=== PATIENT | female | born 1990 | race Caucasian/White ===

== ENCOUNTER 2016-12-22 10:20 | Emergency (ER) | payer MEDICAID ==
[~2016-12-22] VITALS: Ht 162.6 cm; Wt 84.8 kg
--- OUTSIDE RECORDS SUMMARY | 2016-12-22 10:31 | External Medical Summary Rpt ---
Author Author , YISEL MORILLO Address Unknown Phone [email or web address] Team Providers Care Motion Picture Set Grip Name Role Phone [facility] Unavailable Unavailable [facility], [facility] Unavailable Unavailable [facility], [facility] Unavailable Unavailable [facility], [facility] STEWART, STEWART Unavailable Unavailable [facility] Unavailable Unavailable [facility], [facility] Unavailable Unavailable [facility]INGS, [facility] MANA[facility] CONFIGURATION [facility]available Unavailable ASSOCIATES,, [facility], [facility] Unavailable Unavailable [facility], [facility] Un[facility] FERNANDO PIERCE, Unavailable Unavailable FERNANDO GAY, ANTONELLA Unavailable Unavailable ANG SCIELLIS GAY, SCIES Unavailable Unavailable [facility] Unavailable Unavailable PROFESSIO, [facility] JADEN, JADEN Unavailable Unavailable Purpose Continuity of Care Document - 03-10-2016 through 2016 Problems Code Diagnosis DOS Provider Status [id number] UNSPECIFIED 11-01-2016 [facility] OVARIAN MANAGER CONFIGURATION CYST LEFT ASSOCIATES, SIDE N926 IRREGULAR 11-01-2016 [facility] MENSTRUATIO MANAGER CONFIGURATION N ASSOCIATES, UNSPECIFIED Z3202 ENCOUNTER 08-30-2016 [facility] FOR MANAGER CONFIGURATION ASSOCIATES, TEST RESULT NEGATIVE D729 DISORDER OF 08-09-2016 [facility] UNSPECIFIED R102 PELVIC AND 08-09-2016 [facility] R5383 OTHER 08-09-2016 [facility] [id number] ENCOUNTER 07-26-2016 [facility] CLOCK ASSEMBLER EXAM [facility] GENERAL RTN HOLDINGS W/O ABNORMAL FIND D271 BENIGN 07-22-2016 [facility] NEOPLASM OF HEALTH LEFT OVARY [facility] E278 OTHER 07-22-2016 [facility] SPECIFIED RADIOLOGIC DISORDERS PROFESSIO OF ADRENAL GLAND N1330 UNSPECIFIED 07-22-2016 [facility] HYDRONEPHRO PROFESSIO SIS N209 URINARY 07-22-2016 [facility] UNSPECIFIED N390 URINARY 07-22-2016 [facility] INFECTION PHYS [facility] SITE NOT SPECIFIED R109 UNSPECIFIED 07-22-2016 [facility] ABDOMINAL RADIOLOGIC PAIN PROFESSIO R112 NAUSEA WITH 07-22-2016 [facility] VOMITING [facility] UNSPECIFIED PHYS PSC R300 DYSURIA 07-22-2016 [facility] Z113 ENCOUNTER 06-18-2016 [facility] INFECTIONS SEXL MODE TRANSMISSN H5213 MYOPIA 03-10-2016 [facility] BILATERAL [id number] REGULAR 03-10-2016 [facility] ASTIGMATISM BILATERAL Medications Na ND Rx Da Fi Fi Am Da Di Ph RX Ph St me C No te ll ll ou ys ag ar # ys at rm s nt no ma ic us Or Da si cy ia de te s n re d TR 00 06 07 28 21 00 WA Ac I- 55 -0 -0 .0 00 L- ti SP 59 2- 7- 00 07 MA ve RI 01 20 20 31 RT NT 85 17 17 85 EC 8 27 PH AR TA MA BL CY ET #2 62 8 PA 54 05 06 30 30 00 WA Ac RO 45 -1 -1 .0 00 L- ti XE 80 2- 6- 00 07 MA ve TI 99 20 20 32 RT NE 01 17 17 38 0 92 PH HC AR L MA 10 CY MG #2 62 TA 8 BL ET MO 31 05 06 30 30 00 WA Ac NT 72 -1 -1 .0 00 L- ti EL 20 2- 6- 00 07 MA ve UK 72 20 20 32 RT 69 17 17 38 T 0 91 PH SO AR D MA 10 CY MG #2 62 TA 8 BL ET CE 00 05 06 30 30 00 WA Ac TI 37 -1 -1 .0 00 L- ti RI 83 2- 6- 00 08 MA ve ZI 63 20 20 82 RT NE 70 17 17 85 5 44 PH HC AR L MA 10 CY MG #2 62 TA 8 BL ET TR 00 04 05 28 21 00 WA Ac I- 55 -1 -1 .0 00 L- ti SP 59 6- 9- 00 07 MA ve RI 01 20 20 31 RT NT 85 17 17 85 EC 8 27 PH AR TA MA BL CY ET #2 62 8 MO 31 04 05 30 30 00 WA Ac NT 72 -1 -1 .0 00 L- ti EL 20 0- 2- 00 07 MA ve UK 72 20 20 32 RT 69 17 17 38 T 0 91 PH SO AR D MA 10 CY MG #2 62 TA 8 BL ET PA 54 04 05 30 30 00 WA Ac RO 45 -1 -1 .0 00 L- ti XE 80 0- 2- 00 07 MA ve TI 99 20 20 32 RT NE 01 17 17 38 0 92 PH HC AR L MA 10 CY MG #2 62 TA 8 BL ET CE 00 04 05 30 30 00 MS Ac TI 37 -1 -1 .0 00 L- ti RI 83 0- 2- 00 08 MA ve ZI 63 20 20 82 RT NE 70 17 17 85 5 44 PH HC AR L MA 10 CY MG #2 62 TA 8 BL ET TR 00 03 04 28 21 00 MS Ac I- 55 -1 -2 .0 00 L- ti SP 59 6- 1- 00 07 MA ve RI 01 20 20 31 RT NT 85 17 17 85 EC 8 27 PH AR TA MA BL CY ET #2 62 8 EQ 49 03 04 30 30 00 MS Ac 03 -1 -1 .0 00 L- ti AL 50 4- 4- 00 08 MA ve LE 45 20 20 82 RT RG 89 17 17 85 Y 5 44 PH RE AR LI MA EF CY 10 #2 62 MG 8 TA BL ET PA 54 03 04 30 30 00 MS Ac RO 45 -1 -1 .0 00 L- ti XE 80 4- 4- 00 07 MA ve TI 99 20 20 32 RT NE 01 17 17 38 0 92 PH HC AR L MA 10 CY MG #2 62 TA 8 BL ET MO 54 03 04 30 30 00 MS Ac NT 45 -1 -1 .0 00 L- ti EL 80 4- 4- 00 07 MA ve UK 89 20 20 32 RT 01 17 17 38 T 0 91 PH SO AR D MA 10 CY MG #2 62 TA 8 BL ET TR 00 02 03 28 21 00 MS Ac I- 55 -2 -3 .0 00 L- ti SP 59 5- 1- 00 07 MA ve RI 01 20 20 31 RT NT 85 17 17 85 EC 8 27 PH AR TA MA BL CY ET #2 62 8 STONE 55 02 03 9. 9 00 MS Ac MA 11 -2 -3 00 00 L- ti TR 10 3- 1- 0 07 MA ve IP 29 20 20 32 RT TA 20 17 17 38 N 9 90 PH STONE AR CC MA CY 50 #2 MG 62 8 TA BL ET PA 54 02 03 30 30 00 MS Ac RO 45 -1 -1 .0 00 L- ti XE 80 0- 7- 00 07 MA ve TI 99 20 20 30 RT NE 01 17 17 23 0 89 PH HC AR L MA 10 CY MG #2 62 TA 8 BL ET MO 54 02 03 30 30 00 MS Ac NT 45 -1 -1 .0 00 L- ti EL 80 0- 7- 00 07 MA ve UK 89 20 20 30 RT 01 17 17 23 T 0 90 PH SO AR D MA 10 CY MG #2 62 TA 8 BL ET CE 00 02 03 30 30 00 MS Ac TI 37 -1 -1 .0 00 L- ti RI 83 0- 7- 00 08 MA ve ZI 63 20 20 82 RT NE 70 17 17 85 5 44 PH HC AR L MA 10 CY MG #2 62 TA 8 BL ET STONE 55 02 03 9. 9 00 MS Ac MA 11 -1 -1 00 00 L- ti TR 10 2- 7- 0 07 MA ve IP 29 20 20 30 RT TA 10 17 17 93 N 9 54 PH STONE AR CC MA CY 25 #2 MG 62 8 TA BL ET TR 00 02 03 28 21 00 MS Ac I- 55 -0 -1 .0 00 L- ti SP 59 6- 0- 00 07 MA ve RI 01 20 20 31 RT NT 85 17 17 85 EC 8 27 PH AR TA MA BL CY ET #2 62 8 TR 65 02 03 20 5 00 KR Ac AM 16 -0 -1 .0 00 OG ti AD 20 6- 0- 00 04 ER ve OL 62 20 20 61 75 17 17 67 PH HC 0 62 AR L MA 50 CY MG L- 35 TA 2 BL ET LE 69 02 03 5. 5 00 KR Ac VO 09 -0 -1 00 00 OG ti FL 70 6- 0- 0 06 ER ve OX 28 20 20 89 AC 70 17 17 47 PH IN 7 80 AR MA 75 CY 0 MG L- 35 TA 2 BL ET ON 45 02 03 20 7 00 KR Ac DA 96 -0 -1 .0 00 OG ti NS 30 6- 0- 00 06 ER ve ET 53 20 20 89 RO 83 17 17 47 PH N 0 81 AR HC MA L CY 4 MG L- 35 TA 2 BL ET EQ 49 01 02 30 30 00 MS Ac 03 -1 -1 .0 00 L- ti AL 50 4- 7- 00 08 MA ve LE 45 20 20 82 RT RG 89 17 17 85 Y 5 44 PH RE AR LI MA EF CY 10 #2 62 MG 8 TA BL ET TR 00 01 02 28 21 00 WA Ac I- 55 -1 -1 .0 00 L- ti SP 59 4- 7- 00 07 MA ve RI 01 20 20 31 RT NT 85 17 17 85 EC 8 27 PH AR TA MA BL CY ET #2 62 8 STONE 55 01 02 9. 30 00 WA Ac MA 11 -1 -1 00 00 L- ti TR 10 4- 7- 0 07 MA ve IP 29 20 20 30 RT TA 10 17 17 93 N 9 54 PH STONE AR CC MA CY 25 #2 MG 62 8 TA BL ET MO 54 01 02 30 30 00 MS Ac NT 45 -1 -1 .0 00 L- ti EL 80 4- 7- 00 07 MA ve UK 89 20 20 30 RT 01 17 17 23 T 0 90 PH SO AR D MA 10 CY MG #2 62 TA 8 BL ET PA 54 01 02 30 30 00 MS Ac RO 45 -1 -1 .0 00 L- ti XE 80 4- 7- 00 07 MA ve TI 99 20 20 30 RT NE 01 17 17 23 0 89 PH HC AR L MA 10 CY MG #2 62 TA 8 BL ET GA 00 12 01 0. [address] 00 -1 -2 50 00 L- ti 64 6- 0- 0 07 MA ve IL 12 20 20 31 RT 9 10 16 17 48 2 43 PH SY AR RI MA NG CY E #2 62 8 PA 54 12 01 30 30 00 MS Ac RO 45 -1 -2 .0 00 L- ti XE 80 6- 0- 00 07 MA ve TI 99 20 20 30 RT NE 01 16 17 23 0 89 PH HC AR L MA 10 CY MG #2 62 TA 8 BL ET CE 00 12 01 30 30 00 MS Ac TI 37 -1 -2 .0 00 L- ti RI 83 6- 0- 00 08 MA ve ZI 63 20 20 82 RT NE 70 16 17 85 5 44 PH HC AR L MA 10 CY MG #2 62 TA 8 BL ET STONE 55 12 01 9. 30 00 MS Ac MA 11 -1 -2 00 00 L- ti TR 10 6- 0- 0 07 MA ve IP 29 20 20 30 RT TA 10 16 17 93 N 9 54 PH STONE AR CC MA CY 25 #2 MG 62 8 TA BL ET MO 54 12 01 30 30 00 MS Ac NT 45 -1 -2 .0 00 L- ti EL 80 6- 0- 00 07 MA ve UK 89 20 20 30 RT 01 16 17 23 T 0 90 PH SO AR D MA 10 CY MG #2 62 TA 8 BL ET FL 49 12 01 0. 1 00 WA Ac UZ 28 -0 -0 50 00 L- ti ON 10 1- 9- 0 07 MA ve E 41 20 20 31 RT QU 65 16 17 27 AD 0 98 PH AR 20 MA 16 CY -2 01 #2 7 62 SY 8 RI NG E Results Labs Lab Lab Date Result Refere Interp Status Commen Order Detail nces retati t Range on B-HCG SerPl-aCnc (08-30-2016 11:56) HGC < 5.00 complet Intact+ 017 mIU/mL ed B 11:56 SerPl-a Cnc Lactate SerPl-sCnc (07-22-2016 22:23) D-Lacta 1.6 0.5-2.0 complet te 017 mmol/L ed SerPl-s 22:23 Cnc Procalcitonin SerPl-mCnc (07-22-2016 22:23) Procalc < 0.05 complet itonin 017 ng/mL ed SerPl-m 22:23 Cnc Bacteria Bld Cult (07-22-2016 22:22) Bacteri No complet a XXX 017 growth ed Aerobe 22:22 at 5 Cult days Bacterial Susc Pnl Islt KAYLA (07-22-2016 19:48) Meropen 07-22-2 <= 1 complet em Susc 017 ug/ml ed Islt 19:48 Levoflo 2 <= 2 complet xacin 017 ug/ml ed Susc 19:48 Islt Gentami 2 <= 4 complet ofelia 017 ug/ml ed Susc 19:48 Islt Ertapen 2 <= 1 complet em Susc 017 ug/ml ed Islt 19:48 Cephalo <= 8 complet thin 017 ug/ml ed Susc 19:48 Islt Cefurox 2 <= 4 complet ele 017 ug/ml ed Lauren 19:48 r Susc Islt Ceftria 052 <= 8 complet xone 017 ug/ml ed Susc 19:48 Islt Cefotax 02-05-2 <= 2 complet ele 017 ug/ml ed Susc 19:48 Islt Cefepim 05-2 <= 8 complet e Susc 017 ug/ml ed Islt 19:48 Aztreon 05-2 <= 8 complet am Susc 017 ug/ml ed Islt 19:48 Ampicil 05-2 <= 8 / complet mike+Sul 017 4 ug/ml ed diego 19:48 Susc Islt Ampicil 05-2 <= 8 complet mike 017 ug/ml ed Susc 19:48 Islt TMP SMX 07-22-2 <= 2 / complet Susc 017 38 ed Islt 19:48 ug/ml Tobramy 05-2 <= 4 complet ofelia 017 ug/ml ed Susc 19:48 Islt Tetracy 07-22-2 <= 4 complet hanks 017 ug/ml ed Susc 19:48 Islt Pip+Ru 07-22-2 <= 16 complet o Susc 017 ug/ml ed Islt 19:48 Nitrofu 07-22-2 <= 32 complet rantoin 017 ug/ml ed Susc 19:48 Islt Bacteria Ur Cult (07-22-2016 19:48) Bacteri [id number] complet a XXX 017 07 ed Aerobe 19:48 Escheri Cult sharri coli SCT UA Microscopic Pnl # Ur Auto (07-22-2016 19:48) Ref lab Manual complet test 017 Light ed method 19:48 Microsc opy Hyaline None 0-6 complet Casts 017 Seen ed Ur Ql 19:48 /LPF Auto Squamou None None complet s 017 Seen Seen, ed #/area 19:48 /HPF 0-2 UrnS HPF Bacteri [id number] None complet a Ur Ql 017 00 Not Seen, ed Auto 19:48 detecte Trace d SCT /HPF WBC Ur Too None complet Ql Auto 017 Numerou Seen ed 19:48 s to Count /HPF RBC # 3-6 None complet Ur 017 /HPF Seen, ed 19:48 0-2 UA Dipstick Pnl Ur (07-22-2016 19:48) Urobili 1.0 0.2 - complet nogen 017 E.U./dL 1.0 ed Ur Ql 19:48 E.U./dL Strip Nitrite [id number] Negativ complet Ur Ql 017 4 e ed Strip 19:48 Positiv e SCT Leukocy [id number] Negativ complet te 017 01 e ed esteras 19:48 Large e Ur Ql SCT Strip.a uto Prot Ur 30 Negativ complet Ql 017 mg/dL e ed Strip 19:48 (1+) Hgb Ur [id number] Negativ complet Ql 017 01 e ed Strip.a 19:48 Large uto SCT Bilirub [id number] Negativ complet Ur Ql 017 09 e ed Strip 19:48 Negativ e SCT Ketones [id number] Negativ complet Ur Ql 017 09 e ed Strip 19:48 Negativ e SCT Glucose [id number] Negativ complet Ur 017 09 e ed Strip-m 19:48 Negativ Cnc e SCT Sp Gr <= 1.001-1 complet Ur 017 1.005 .030 ed Strip 19:48 pH Ur 6.0 5.0-8.0 complet Strip.a 017 ed uto 19:48 Clarity [id number] Clear complet Ur 017 5 ed 19:48 Cloudy SCT Color [id number] Yellow, complet Ur 017 08 Straw ed 19:48 Jessup color SCT LPL SerPl-cCnc (07-22-2016 19:34) Lipase 28 U/L 6-51 complet SerPl-c 017 ed Cnc 19:34 Comp Metab 1997 Pnl SerPl (07-22-2016 19:34) Anion 6.0 3.0-11. complet Gap3 017 mmol/L 0 ed SerPl-s 19:34 Cnc BUN/Cre 11.3 7.0-25. complet at 017 0 ed SerPl 19:34 Albumin 1.4 1.5-2.5 complet /Glob 017 g/dL ed SerPl 19:34 Globuli 3.4 complet n Ur 017 gm/dL ed Elph-mC 19:34 nc GFR/BSA 86 >60 complet .pred 017 mL/min/ ed SerPl 19:34 1.73 MDRD-Ar VRat Bilirub 0.3 0.3-1.2 complet 017 mg/dL ed SerPl-m 19:34 Cnc ALP 63 U/L 25-100 complet SerPl-c 017 ed Cnc 19:34 AST 23 U/L 0-33 complet SerPl-c 017 ed Cnc 19:34 ALT 16 U/L 7-40 complet SerPl w 017 ed 19:34 P-5'-P- cCnc Albumin 4.70 3.20-4. complet 017 g/dL 80 ed SerPl-m 19:34 Cnc Prot 8.1 5.7-8.2 complet SerPl-m 017 g/dL ed Cnc 19:34 Calcium 9.9 8.7-10. complet 017 mg/dL 4 ed XXX-sCn 19:34 c CO2 28.0 20.0-31 complet SerPl-s 017 mmol/L .0 ed Cnc 19:34 Chlorid 103 99-109 complet e 017 mmol/L ed SerPl-s 19:34 Cnc Potassi 3.7 3.5-5.5 complet um 017 mmol/L ed Bld-sCn 19:34 c Sodium 137 132-146 complet Bld-sCn 017 mmol/L ed c 19:34 Creat 07-22-2 0.80 0.60-1. complet Bld-mCn 017 mg/dL 30 ed c 19:34 BUN 05-2 9 mg/dL 9-23 complet Bld-mCn 017 ed c 19:34 Glucose 05-2 100 70-100 complet 017 mg/dL ed Bld-mCn 19:34 c CBC W Diff pnl,unspecified Bld (07-22-2016 19:34) Imm 05-2 0.04 0.00-0. complet Granulo 017 10*3/mm 03 ed cytes # 19:34 3 Bld Basophi 02-05-2 0.03 0.00-0. complet ls # 017 10*3/mm 20 ed Bld 19:34 3 Auto Eosinop 02-05-2 0.22 0.10-0. complet hil # 017 10*3/mm 30 ed Bld 19:34 3 Auto Monocyt 02-05-2 1.09 0.00-1. complet es # 017 10*3/mm 00 ed Bld 19:34 3 Auto Lymphoc 02-05-2 1.55 0.60-4. complet ytes # 017 10*3/mm 80 ed Bld 19:34 3 Auto Neutrop 02-05-2 13.44 1.50-8. complet hils # 017 10*3/mm 30 ed Bld 19:34 3 Auto Imm 02-05-2 0.2 % 0.0-0.6 complet Granulo 017 ed cytes 19:34 NFr Bld Basophi 02-05-2 0.2 % 0.0-1.0 complet ls NFr 017 ed Bld 19:34 Auto Eosinop 02-05-2 1.3 % 0.0-3.0 complet hil NFr 017 ed Bld 19:34 Auto Monocyt 02-05-2 6.7 % 0.0-12. complet es NFr 017 0 ed Bld 19:34 Auto Lymphoc 02-05-2 9.5 % 24.0-44 complet ytes 017 .0 ed NFr Bld 19:34 Auto Neutrop 02-05-2 82.1 % 41.0-71 complet hils 017 .0 ed NFr Bld 19:34 Auto Platele 02-05-2 315 150-450 complet t # Bld 017 10*3/mm ed Auto 19:34 3 PMV Bld 02-05-2 10.7 fL 6.0-12. complet Auto 017 0 ed 19:34 RDW RBC 02-05-2 42.3 fl 37.0-54 complet Auto 017 .0 ed 19:34 RDW RBC 02-05-2 13.0 % 11.3-14 complet 017 .5 ed Auto-Rt 19:34 o MCHC 02-05-2 32.4 32.0-36 complet RBC 017 g/dL .0 ed Auto-mC 19:34 nc MCH RBC 02-05-2 28.7 pg 27.0-31 complet Qn 017 .0 ed Auto 19:34 MCV RBC 02-05-2 88.6 fL 80.0-99 complet Auto 017 .0 ed 19:34 Hct VFr 02-05-2 43.5 % 34.5-44 complet Bld 017 .0 ed Auto 19:34 Hgb 05-2 14.1 11.5-15 complet Bld-mCn 017 g/dL .5 ed c 19:34 RBC # 02-05-2 4.91 3.89-5. complet Bld 017 10*6/mm 14 ed Auto 19:34 3 WBC 05- 16.37 3.50-10 complet nRBC 017 10*3/mm .80 ed cor # 19:34 3 Bld Procedures [place] [address] [facility]LY [facility] TRANSVA 7 MANAGER CONFIGURATION NAL ASSOCIATE S, URINE 27631 [facility] 7 MANAGER CONFIGURATION TEST ASSOCIATE VISUAL S, COLOR CMPRSN METHS BLOOD 23347 JAIN JAIN COUNT 7 [facility] COMPLETE [facility] AUTO&AUTO DIFRNTL WBC GONADOTRO 41548 JAIN JAIN PIN 7 [facility] CHORIONIC [facility] [address] JAIN JAIN THYROID [address] [place] [address] STIMULATI [facility] NG HORMONE TSH COLLECTIO 28064 JAIN JAIN N VENOUS [address] [place] [address] BLOOD [facility] VENIPUNCT URE BASIC 12786 JAIN JAIN METABOLIC 7 HEALTH HEALTH PANEL [facility] [place] [address] [facility] 7 MANAGER CONFIGURATION NAL ASSOCIATE S, BLOOD 74248 LAB LY LAB LY COUNT 7 [facility] AUTO&AUTO DIFRNTL WBC BLOOD 46455 JAIN JAIN COUNT [address] [place] [address] HEALTH COMPLETE [facility] AUTO&AUTO DIFRNTL WBC CULTURE 67085 JAIN JAIN BACTERIAL [address] [place] [address] BLOOD [facility] AEROBIC W/ID ISOLATES SUSCEPTIB 76019 JAIN JAIN LTY STDY [address] [place] [address] ANTIMICRB [facility] IAL MICRO/AGA R DILUTJ URNLS DIP [address]86 JAIN JAIN [address] [place] [address] HEALTH STICK/TAB [facility] [place] [address] JAIN JAIN INFUSION [address] [place] [address] THERAPY/P [facility] ROPHYLAXI S /DX 1ST TO 1 HR THERAPEUT 05038 JAIN JAIN IC 7 [facility] HEALTH INJECTION [facility] IV PUSH EACH NEW DRUG INJECTION J1170 JAIN JAIN [address] [place] [address] HYDROMORP [facility] KERWIN UP [place] [address] [place] [address] JAIN JAIN LIPASE 7 [facility] HEALTH [facility] PROCALCIT 19412 JAIN JAIN ONIN [address] [place] [address] (PCT) [facility] CUL BACT 58202 JAIN JAIN AEROBIC [address] [place] [address] HEALTH ADDL [facility] METHS DEFINITIV E EA ISOL CULTURE 50050 JAIN JAIN BACTERIAL [address] [place] [address] QUANTTATI VE COLONY COUNT URINE INJECTION J2405 JAIN JAIN [address] [place] [address] ONDANSETR [facility] ON HCL PER 1 MG COMPREHEN 40591 JAIN JAIN SIVE [address] [place] [address] METABOLIC [facility] [place] [address] JAIN JAIN LACTATE [address] [place] [address] [place] [address] JAIN JAIN INFUSION [address] [place] [address] HYDRATION [facility] [place] [address] JAIN JAIN ABDOMEN & 7 HEALTH HEALTH PELVIS [facility] W/O CONTRAST MATERIAL INJECTION J1885 JAIN JAIN [address] [place] [address] KETOROLAC [facility] TROMETHAM INE PER 15 MG IADNA 45213 [facility] ER JR GONORRHOE AE AMPLIFIED PROBE TQ IADNA 17970 [facility] CHLAMYD[facility] 7 [facility] ER JR TRACHOMAT IS AMPLIFIED PROBE TQ CYTP C/V 01971 [facility] AUTO THIN 7 LLC ER JR LYR PREPJ SCR MNL RESCR PHYS OPHTH 16128 [facility] MEDICAL 6 ANG ANG XM&EVAL COMPRHNSV ESTAB PT 1/> Encounters Encounter Start End Date Code Location Performer Type Date OFFICE 71262 [facility] 7 7 MANAGER CONFIGURATION T VISIT ASSOCIATE 15 S, MINUTES OFFICE 06740 [facility] 7 7 MANAGER CONFIGURATION T VISIT ASSOCIATE 15 S, MINUTES [facility] 93261 [facility] OUTPATIEN 7 7 HEALTH T NEW 30 MEDICAL MINUTES GROUP OFFICE 86183 [facility] 7 7 MANAGER CONFIGURATION T VISIT ASSOCIATE 15 S, MINUTES [facility]OSP[facility] - 7 7 HEALTH OUTPATIEN [place] [facility] 86817 [facility] 7 7 EMERGENCY VISIT PHYS PSC HIGH SEVERITY& THREAT [facility] 68056 [facility] 7 [facility] V[facility] HIGH/URGE NT SEVERITY OFFICE 03844 [facility] DINHPATI[facility] 7 7 URGENT T NEW 30 CARE MINUTES PERIODIC 35223 [facility] PREVENTIV 7 7 MANAGER CONFIGURATION E MED EST ASSOCIATE PATIENT S, 18-39 YRS
--- OUTSIDE RECORDS SUMMARY | 2016-12-22 10:31 | External Medical Summary Rpt ---
Author Author , YISEL MORILLO Address Unknown Phone [email or web address] Care Team Providers Care Medical Billing Supervisor Name Role Phone [facility] Unavailable Unavailable [place], [facility] Unavailable Unavailable [facility], [facility] Unavailable Unavailable [facility], [facility] STEWART, STEWART Unavailable Unavailable [facility] Unavailable Unavailable HOLDINGS, [facility] Unavailable Unavailable HOLDINGS, [facility] MANIFEST/ORDER ORGANIZER PRINT ORDERS Unavailable Unavailable ASSOCIATES,, [place] MANIFEST/ORDER ORGANIZER PRINT ORDERS [facility], [place] [place] [facility] Unavailable Unavailable [facility], [facility] Un[facility] FERNANDO PIERCE, Unavailable Unavailable FERNANDO GAY, ANTONELLA Unavailable Unavailable ANG SCIELLIS GAY, SCIES Unavailable Unavailable [facility] Unavailable Unavailable PROFESSIO, [facility] PROFESSIO JADEN, JADEN Unavailable Unavailable Purpose Continuity of Care Document - 03-10-2016 through 2016 Problems Code Diagnosis DOS Provider Status [id number] UNSPECIFIED 11-01-2016 [place] OVARIAN MANIFEST/ORDER ORGANIZER PRINT ORDERS CYST LEFT ASSOCIATES, SIDE N926 IRREGULAR 11-01-2016 [place] MENSTRUATIO MANIFEST/ORDER ORGANIZER PRINT ORDERS N ASSOCIATES, UNSPECIFIED Z3202 ENCOUNTER 08-30-2016 [place] FOR MANIFEST/ORDER ORGANIZER PRINT ORDERS ASSOCIATES, TEST RESULT NEGATIVE D729 DISORDER OF 08-09-2016 [facility] UNSPECIFIED R102 PELVIC AND 08-09-2016 [facility] R5383 OTHER 08-09-2016 [facility] [id number] ENCOUNTER 07-26-2016 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 TIME 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 EXAM [place] GENERAL RTN HOLDINGS W/O ABNORMAL FIND D271 BENIGN 07-22-2016 [facility] NEOPLASM OF HEALTH LEFT OVARY [place] E278 OTHER 07-22-2016 VIRTUAL SPECIFIED RADIOLOGIC DISORDERS PROFESSIO OF ADRENAL GLAND N1330 UNSPECIFIED 07-22-2016 [facility] HYDRONEPHRO PROFESSIO SIS N209 URINARY 07-22-2016 [place] [facility] UNSPECIFIED N390 URINARY 07-22-2016 [facility] INFECTION PHYS [facility] SITE NOT SPECIFIED R109 UNSPECIFIED 07-22-2016 V[facility]UAL ABDOMINAL RADIOLOGIC PAIN PROFESSIO R112 NAUSEA WITH 07-22-2016 [facility] VOMITING EMERGENCY UNSPECIFIED PHYS PSC R300 DYSURIA 07-22-2016 [facility] Z113 ENCOUNTER 06-18-2016 [facility] INFECTIONS SEXL MODE TRANSMISSN H5213 MYOPIA 03-10-2016 [facility] ANG BILATERAL [id number] REGULAR 03-10-2016 [facility] ANG ASTIGMATISM BILATERAL Medications [...] CE 00 04 05 30 30 00 MT Ac TI 37 -1 -1 .0 00 L- ti RI 83 0- 2- 00 08 MA ve ZI 63 20 20 82 RT NE 70 17 17 85 5 44 PH HC AR L MA 10 CY MG #2 62 TA 8 BL ET TR 00 03 04 28 21 00 MT Ac I- 55 -1 -2 .0 00 L- ti SP 59 6- 1- 00 07 MA ve RI 01 20 20 31 RT NT 85 17 17 85 EC 8 27 PH AR TA MA BL CY ET #2 62 8 EQ 49 03 04 30 30 00 MT Ac 03 -1 -1 .0 00 L- ti AL 50 4- 4- 00 08 MA ve LE 45 20 20 82 RT RG 89 17 17 85 Y 5 44 PH RE AR LI MA EF CY 10 #2 62 MG 8 TA BL ET PA 54 03 04 30 30 00 MT Ac RO 45 -1 -1 .0 00 L- ti XE 80 4- 4- 00 07 MA ve TI 99 20 20 32 RT NE 01 17 17 38 0 92 PH HC AR L MA 10 CY MG #2 62 TA 8 BL ET MO 54 03 04 30 30 00 MT Ac NT 45 -1 -1 .0 00 L- ti EL 80 4- 4- 00 07 MA ve UK 89 20 20 32 RT 01 17 17 38 T 0 91 PH SO AR D MA 10 CY MG #2 62 TA 8 BL ET TR 00 02 03 28 21 00 MT Ac I- 55 -2 -3 .0 00 L- ti SP 59 5- 1- 00 07 MA ve RI 01 20 20 31 RT NT 85 17 17 85 EC 8 27 PH AR TA MA BL CY ET #2 62 8 STONE 55 02 03 9. 9 00 MT Ac MA 11 -2 -3 00 00 L- ti TR 10 3- 1- 0 07 MA ve IP 29 20 20 32 RT TA 20 17 17 38 N 9 90 PH STONE AR CC MA CY 50 #2 MG 62 8 TA BL ET PA 54 02 03 30 30 00 MT Ac RO 45 -1 -1 .0 00 L- ti XE 80 0- 7- 00 07 MA ve TI 99 20 20 30 RT NE 01 17 17 23 0 89 PH HC AR L MA 10 CY MG #2 62 TA 8 BL ET MO 54 02 03 30 30 00 MT Ac NT 45 -1 -1 .0 00 L- ti EL 80 0- 7- 00 07 MA ve UK 89 20 20 30 RT 01 17 17 23 T 0 90 PH SO AR D MA 10 CY MG #2 62 TA 8 BL ET CE 00 02 03 30 30 00 MT Ac TI 37 -1 -1 .0 00 L- ti RI 83 0- 7- 00 08 MA ve ZI 63 20 20 82 RT NE 70 17 17 85 5 44 PH HC AR L MA 10 CY MG #2 62 TA 8 BL ET STONE 55 02 03 9. 9 00 MT Ac MA 11 -1 -1 00 00 L- ti TR 10 2- 7- 0 07 MA ve IP 29 20 20 30 RT TA 10 17 17 93 N 9 54 PH STONE AR CC MA CY 25 #2 MG 62 8 TA BL ET TR 00 02 03 28 21 00 MT Ac I- 55 -0 -1 .0 00 [...] EQ 49 01 02 30 30 00 MT Ac 03 -1 -1 .0 00 L- [...] MO 54 01 02 30 30 00 MT Ac NT 45 -1 -1 .0 00 L- ti EL 80 4- 7- 00 07 MA ve UK 89 20 20 30 RT 01 17 17 23 T 0 90 PH SO AR D MA 10 CY MG #2 62 TA 8 BL ET PA 54 01 02 30 30 00 MT Ac RO 45 -1 -1 .0 00 L- ti XE 80 4- 7- 00 07 MA ve TI 99 20 20 30 RT NE 01 17 17 23 0 89 PH HC AR L MA 10 CY MG #2 62 TA 8 BL ET GA 00 12 01 0. [address] 00 -1 -2 50 00 L- ti 64 6- 0- 0 07 MA ve IL 12 20 20 31 RT 9 10 16 17 48 2 43 PH SY AR RI MA NG CY E #2 62 8 PA 54 12 01 30 30 00 MT Ac RO 45 -1 -2 .0 00 L- ti XE 80 6- 0- 00 07 MA ve TI 99 20 20 30 RT NE 01 16 17 23 0 89 PH HC AR L MA 10 CY MG #2 62 TA 8 BL ET CE 00 12 01 30 30 00 MT Ac TI 37 -1 -2 .0 00 L- ti RI 83 6- 0- 00 08 MA ve ZI 63 20 20 82 RT NE 70 16 17 85 5 44 PH HC AR L MA 10 CY MG #2 62 TA 8 BL ET STONE 55 12 01 9. 30 00 MT Ac MA 11 -1 -2 00 00 L- ti TR 10 6- 0- 0 07 MA ve IP 29 20 20 30 RT TA 10 16 17 93 N 9 54 PH STONE AR CC MA CY 25 #2 MG 62 8 TA BL ET MO 54 12 01 30 30 00 MT Ac NT 45 -1 -2 .0 00 [...] Islt Bacteria Ur Cult (07-22-2016 19:48) Bacteri [id number] complet a XXX 017 07 ed Aerobe 19:48 Escheri Cult sharri coli SCT UA Microscopic Pnl # Ur Auto (07-22-2016 19:48) Ref lab Manual complet test 017 Light ed method 19:48 Microsc opy Hyaline None 0-6 complet Casts 017 Seen ed Ur Ql 19:48 /LPF Auto Squamou None None complet s 017 Seen Seen, ed #/area 19:48 /HPF 0-2 UrnS HPF Bacteri [id number] None complet a Ur Ql 017 00 [...] ed Ur Ql 19:48 E.U./dL Strip Nitrite [id number] Negativ complet Ur Ql 017 4 e ed Strip 19:48 Positiv e SCT Leukocy [id number] Negativ complet te 017 01 e ed esteras 19:48 Large e Ur Ql SCT Strip.a uto Prot Ur 30 Negativ complet Ql 017 mg/dL e ed Strip 19:48 (1+) Hgb Ur [id number] Negativ complet Ql 017 01 e ed Strip.a 19:48 Large uto SCT Bilirub [id number] Negativ complet Ur Ql 017 09 e ed Strip 19:48 Negativ e SCT Ketones [id number] Negativ complet Ur Ql 017 09 e ed Strip 19:48 Negativ e SCT Glucose [id number] Negativ complet Ur 017 09 e ed Strip-m 19:48 Negativ Cnc e SCT Sp Gr <= 1.001-1 complet Ur 017 1.005 .030 ed Strip 19:48 pH Ur 6.0 5.0-8.0 complet Strip.a 017 ed uto 19:48 Clarity [id number] Clear complet Ur 017 5 ed 19:48 Cloudy SCT Color [id number] Yellow, complet Ur 017 08 Straw ed 19:48 Salt Flat color SCT LPL SerPl-cCnc (07-22-2016 19:34) Lipase [...] Procedure [place] [address] [facility] TRANSVA 7 MANIFEST/ORDER ORGANIZER PRINT ORDERS NAL ASSOCIATE S, URINE 52931 [facility] 7 MANIFEST/ORDER ORGANIZER PRINT ORDERS TEST ASSOCIATE VISUAL S, COLOR CMPRSN METHS BLOOD 09175 Y[facility]ANISM YAZDANISM COUNT 7 [facility] COMPLETE [facility] AUTO&AUTO DIFRNTL WBC GONADOTRO 37123 Y[facility]ANISM YAZDANISM PIN 7 [facility] CHORIONIC [facility] [address] Y[facility]ANISM Y[facility] THYROID [address] [place] [address] STIMULATI [facility] NG HORMONE TSH COLLECTIO 80244 YAZDANISM YAZDANISM N VENOUS [address] [place] [address] BLOOD [facility] VENIPUNCT URE BASIC 37085 Y[facility]ANISM Y[facility] METABOLIC 7 HEALTH HEALTH PANEL [facility] [place] [address] [facility] TRANSVAGI 7 MANIFEST/ORDER ORGANIZER PRINT ORDERS NAL ASSOCIATE S, BLOOD 12100 LAB L[facility] LAB [facility] COUNT 7 [facility] COMPLETE HOLDINGS HOLDINGS AUTO&AUTO DIFRNTL WBC BLOOD 74134 Y[facility]ANISM YAZDANISM COUNT [address] [place] [address] HEALTH COMPLETE [facility] AUTO&AUTO DIFRNTL WBC CULTURE 72414 [facility]ISM Y[facility]ANISM BACTERIAL [address] [place] [address] BLOOD [facility] AEROBIC W/ID ISOLATES SUSCEPTIB 23204 YAZDANISM YAZDANISM LTY STDY [address] [place] [address] ANTIMICRB [facility] IAL MICRO/AGA R DILUTJ URNLS DIP 92262 YAZDANISM YAZDANISM [address] [place] [address] HEALTH STICK/TAB [facility] [place] [address] YAZDANISM YAZDANISM INFUSION [address] [place] [address] THERAPY/P [facility] ROPHYLAXI S /DX 1ST TO 1 HR THERAPEUT 24129 Y[facility]ANISM YAZDANISM IC 7 [facility] HEALTH INJECTION [facility] IV PUSH EACH NEW DRUG INJECTION J1170 YAZDANISM YAZDANISM [address] [place] [address] HYDROMORP [facility] KERWIN UP TO [address] [place] [address] YAZDANISM YAZDANISM LIPASE 7 [facility] HEALTH [facility] PROCALCIT 66380 YAZDANISM YAZDANISM ONIN [address] [place] [address] (PCT) [facility] CUL BACT 70119 YAZDANISM YAZDANISM AEROBIC [address] [place] [address] HEALTH ADDL [facility] METHS DEFINITIV E EA ISOL CULTURE 27884 YAZDANISM YAZDANISM BACTERIAL [address] [place] [address] QUANTTATI VE COLONY COUNT URINE INJECTION J2405 YAZDANISM YAZDANISM [address] [place] [address] ONDANSETR [facility] ON HCL PER 1 MG COMPREHEN 45350 YAZDANISM YAZDANISM SIVE [address] [place] [address] METABOLIC [facility] [place] [address] YAZDANISM YAZDANISM LACTATE [address] [place] [address] IV [address]85 YAZDANISM YAZDANISM INFUSION [address] [place] [address] HYDRATION [facility] [place] [address] YAZDANISM YAZDANISM ABDOMEN & 7 HEALTH HEALTH PELVIS [facility] W/O CONTRAST MATERIAL INJECTION J1885 YAZDANISM YAZDANISM [address] [place] [address] KETOROLAC [facility] TROMETHAM INE PER 15 MG IADNA 19166 [facility] NE[facility] 7 LLC ER JR GONORRHOE AE AMPLIFIED PROBE TQ IADNA 60813 [facility] CHLAMYDIA 7 LLC ER JR TRACHOMAT IS AMPLIFIED PROBE TQ CYTP C/V 51571 [facility] AUTO THIN 7 LLC ER JR LYR PREPJ SCR MNL RESCR PHYS OPHTH 03807 [facility] MEDICAL 6 ANG ANG XM&EVAL COMPRHNSV ESTAB PT 1/> Encounters Encounter Start End Date Code Location Performer Type Date OFFICE 98441 [facility] 7 7 MANIFEST/ORDER ORGANIZER PRINT ORDERS T VISIT ASSOCIATE 15 S, MINUTES OFFICE 57992 [facility] 7 7 MANIFEST/ORDER ORGANIZER PRINT ORDERS T VISIT ASSOCIATE 15 S, MINUTES HOSPITAL [facility] - 7 [facility] 86016 [facility] OUTPATIEN 7 7 HEALTH T NEW 30 MEDICAL MINUTES GROUP OFFICE 60484 [facility] 7 7 MANIFEST/ORDER ORGANIZER PRINT ORDERS T VISIT ASSOCIATE 15 S, MINUTES HOSPITAL Y[facility] - 7 7 HEALTH OUTPATIEN [place] [facility] EM[facility] 98162 [facility] 7 7 EMERGENCY VISIT PHYS PSC HIGH SEVERITY& THREAT [facility] 50718 Y[facility]ANISM 7 7 [facility] T VISIT HIGH/URGE NT SEVERITY OFFICE 19750 [facility] DINHPATIEN 7 7 URGENT T NEW 30 CARE MINUTES PERIODIC 41786 [facility] PREVENTIV 7 7 MANIFEST/ORDER ORGANIZER PRINT ORDERS E MED EST ASSOCIATE PATIENT S, 18-39 YRS
--- OUTSIDE RECORDS SUMMARY | 2016-12-22 10:32 | External Medical Summary Rpt ---
Author Author , YISEL MORILLO Address Unknown Phone [email or web address] Care Team Providers Care Warehouse Operations Associate Name Role Phone [facility] Unavailable Unavailable [facility]available Unavailable [facility], [facility] Unavailable Unavailable [facility], [facility] STEWART, STEWART Unavailable Unavailable [facility] Unavailable Unavailable HOLDINGS, [facility] Unavailable Unavailable HOLDINGS, [facility] STITCHING MACHINE OPERATOR Unavailable Unavailable ASSOCIATES,, [facility] STITCHING MACHINE OPERATOR [facility], [facility] Unavailable Unavailable CARE, [facility] Unavailable [facility] FERNANDO PIERCE, Unavailable Unavailable FERNANDO GAY, ANTONELLA Unavailable Unavailable ANG SCIELLIS GAY, SCIELLIS Unavailable Unavailable [facility] Unavailable Unavailable PROFESSIO, [facility] PROFESSIO JADEN [facility]AN[facility] Unavailable Unavailable Purpose Continuity of Care Document - 03-10-2016 through 2016 Problems Code Diagnosis DOS Provider Status [id number] UNSPECIFIED 11-01-2016 [facility] OVARIAN PROFILE STITCHING MACHINE OPERATOR CYST LEFT ASSOCIATES, SIDE N926 IRREGULAR 11-01-2016 [facility] MENSTRUATIO PROFILE STITCHING MACHINE OPERATOR N ASSOCIATES, UNSPECIFIED Z3202 ENCOUNTER 08-30-2016 [place] [facility] FOR PROFILE STITCHING MACHINE OPERATOR ASSOCIATES, TEST RESULT NEGATIVE D729 DISORDER OF 08-09-2016 [facility] UNSPECIFIED R102 PELVIC AND 08-09-2016 [facility] R5383 OTHER 08-09-2016 [facility] N18682 ENCOUNTER 07-26-2016 LAB LY FRUIT SORTER EXAM [facility] GENERAL RTN HOLDINGS W/O ABNORMAL FIND D271 BENIGN 07-22-2016 [facility] NEOPLASM OF HEALTH LEFT OVARY [facility] E278 OTHER 07-22-2016 VIRTUAL SPECIFIED RADIOLOGIC DISORDERS PROFESSIO OF ADRENAL GLAND N1330 UNSPECIFIED 07-22-2016 [facility] HYDRONEPHRO PROFESSIO SIS N209 URINARY 07-22-2016 [facility] UNSPECIFIED N390 URINARY 07-22-2016 [facility] INFECTION PHYS PSC SITE NOT SPECIFIED R109 UNSPECIFIED 07-22-2016 V[facility]UAL ABDOMINAL RADIOLOGIC PAIN PROFESSIO R112 NAUSEA WITH 07-22-2016 [facility] EMERGENCY UNSPECIFIED PHYS PSC R300 DYSURIA 07-22-2016 [facility] Z113 ENCOUNTER 06-18-2016 [facility] INFECTIONS SEXL MODE TRANSMISSN H5213 MYOPIA 03-10-2016 [facility] ANG BILATERAL B76009 REGULAR 03-10-2016 [facility] ANG ASTIGMATISM BILATERAL Medications [...] MA BL CY ET #2 62 8 CE 00 04 05 30 30 00 WA Ac TI 37 -1 -1 .0 00 L- ti RI 83 0- 2- 00 08 MA ve ZI 63 20 20 82 RT NE 70 17 17 85 5 44 PH HC AR L MA 10 CY MG #2 62 TA 8 BL ET MO 31 04 05 30 30 00 [...] TR 00 03 04 28 21 00 AK Ac I- 55 -1 -2 .0 00 L- ti SP 59 6- 1- 00 07 MA ve RI 01 20 20 31 RT NT 85 17 17 85 EC 8 27 PH AR TA MA BL CY ET #2 62 8 MO 54 03 04 30 30 00 AK Ac NT 45 -1 -1 .0 00 L- ti EL 80 4- 4- 00 07 MA ve UK 89 20 20 32 RT 01 17 17 38 T 0 91 PH SO AR D MA 10 CY MG #2 62 TA 8 BL ET PA 54 03 04 30 30 00 AK Ac RO 45 -1 -1 .0 00 L- ti XE 80 4- 4- 00 07 MA ve TI 99 20 20 32 RT NE 01 17 17 38 0 92 PH HC AR L MA 10 CY MG #2 62 TA 8 BL ET EQ 49 03 04 30 30 00 AK Ac 03 -1 -1 .0 00 L- ti AL 50 4- 4- 00 08 MA ve LE 45 20 20 82 RT RG 89 17 17 85 Y 5 44 PH RE AR LI MA EF CY 10 #2 62 MG 8 TA BL ET STONE 55 02 03 9. 9 00 AK Ac MA 11 -2 -3 00 00 L- ti TR 10 3- 1- 0 07 MA ve IP 29 20 20 32 RT TA 20 17 17 38 N 9 90 PH STONE AR CC MA CY 50 #2 MG 62 8 TA BL ET TR 00 02 03 28 21 00 AK Ac I- 55 -2 -3 .0 00 L- ti SP 59 5- 1- 00 07 MA ve RI 01 20 20 31 RT NT 85 17 17 85 EC 8 27 PH AR TA MA BL CY ET #2 62 8 PA 54 02 03 30 30 00 AK Ac RO 45 -1 -1 .0 00 L- ti XE 80 0- 7- 00 07 MA ve TI 99 20 20 30 RT NE 01 17 17 23 0 89 PH HC AR L MA 10 CY MG #2 62 TA 8 BL ET MO 54 02 03 30 30 00 AK Ac NT 45 -1 -1 .0 00 L- ti EL 80 0- 7- 00 07 MA ve UK 89 20 20 30 RT 01 17 17 23 T 0 90 PH SO AR D MA 10 CY MG #2 62 TA 8 BL ET CE 00 02 03 30 30 00 AK Ac TI 37 -1 -1 .0 00 L- ti RI 83 0- 7- 00 08 MA ve ZI 63 20 20 82 RT NE 70 17 17 85 5 44 PH HC AR L MA 10 CY MG #2 62 TA 8 BL ET STONE 55 02 03 9. 9 00 AK Ac MA 11 -1 -1 00 00 L- ti TR 10 2- 7- 0 07 MA ve IP 29 20 20 30 RT TA 10 17 17 93 N 9 54 PH STONE AR CC MA CY 25 #2 MG 62 8 TA BL ET TR 00 02 03 28 21 00 AK Ac I- 55 -0 -1 .0 00 [...] MG L- 35 TA 2 BL ET STONE 55 01 02 9. 30 00 AK Ac MA 11 -1 -1 00 00 L- ti TR 10 4- 7- 0 07 MA ve IP 29 20 20 30 RT TA 10 17 17 93 N 9 54 PH STONE AR CC MA CY 25 #2 MG 62 8 TA BL ET MO 54 01 02 30 30 00 AK Ac NT 45 -1 -1 .0 00 L- ti EL 80 4- 7- 00 07 MA ve UK 89 20 20 30 RT 01 17 17 23 T 0 90 PH SO AR D MA 10 CY MG #2 62 TA 8 BL ET PA 54 01 02 30 30 00 AK Ac RO 45 -1 -1 .0 00 L- ti XE 80 4- 7- 00 07 MA ve TI 99 20 20 30 RT NE 01 17 17 23 0 89 PH HC AR L MA 10 CY MG #2 62 TA 8 BL ET EQ 49 01 02 30 30 00 AK Ac 03 -1 -1 .0 00 L- ti AL 50 4- 7- 00 08 MA ve LE 45 20 20 82 RT RG 89 17 17 85 Y 5 44 PH RE AR LI MA EF CY 10 #2 62 MG 8 TA BL ET TR 00 01 02 28 21 00 AK Ac I- 55 -1 -1 .0 00 L- ti SP 59 4- 7- 00 07 MA ve RI 01 20 20 31 RT NT 85 17 17 85 EC 8 27 PH AR TA MA BL CY ET #2 62 8 GA 00 12 [address] 0[address] 00 -1 -2 50 00 L- ti 64 6- 0- 0 07 MA ve IL 12 20 20 31 RT 9 10 16 17 48 2 43 PH SY AR RI MA NG CY E #2 62 8 PA 54 12 01 30 30 00 AK Ac RO 45 -1 -2 .0 00 L- ti XE 80 6- 0- 00 07 MA ve TI 99 20 20 30 RT NE 01 16 17 23 0 89 PH HC AR L MA 10 CY MG #2 62 TA 8 BL ET CE 00 12 01 30 30 00 AK Ac TI 37 -1 -2 .0 00 L- ti RI 83 6- 0- 00 08 MA ve ZI 63 20 20 82 RT NE 70 16 17 85 5 44 PH HC AR L MA 10 CY MG #2 62 TA 8 BL ET STONE 55 12 01 9. 30 00 AK Ac MA 11 -1 -2 00 00 L- ti TR 10 6- 0- 0 07 MA ve IP 29 20 20 30 RT TA 10 16 17 93 N 9 54 PH STONE AR CC MA CY 25 #2 MG 62 8 TA BL ET MO 54 12 01 30 30 00 AK Ac NT 45 -1 -2 .0 00 [...] 7 62 SY 8 RI NG E Procedures Procedure [place] [address] [facility] TRANSVAGI 7 PROFILE STITCHING MACHINE OPERATOR NAL ASSOCIATE S, URINE 89175 [facility] 7 PROFILE STITCHING MACHINE OPERATOR TEST ASSOCIATE VISUAL S, COLOR CMPRSN METHS GONADOTRO 03209 [facility] PIN 7 [facility] HEALTH CHORIONIC [facility] QUANTITAT JOEY BLOOD 37987 [facility] COUNT 7 [facility] HEALTH COMPLETE [facility] AUTO&AUTO DIFRNTL WBC BASIC 96255 [facility] METABOLIC 7 HEALTH HEALTH PANEL [facility] CALCIUM TOTAL COLLECTIO 43410 [facility] N VENOUS 7 [facility] BLOOD [facility] [place] [address] [facility] THYROID 7 [facility] HEALTH STIMULATI [facility] [place] [address] [facility] 7 PROFILE STITCHING MACHINE OPERATOR NAL ASSOCIATE S, BLOOD 89151 LAB L[facility] LAB LY COUNT 7 [facility] COMPLETE HOLDINGS HOLDINGS AUTO&AUTO DIFRNTL WBC CULTURE 15740 [facility] BACTERIAL 7 [facility] BLOOD [facility] AEROBIC W/ID ISOLATES SUSCEPTIB 10045 [facility] LTY STDY 7 [facility] HEALTH ANTIMICRB [facility] IAL MICRO/AGA R DILUTJ URNLS DIP 91554 [facility] 7 [facility] HEALTH STICK/TAB [facility] [place] [address] [facility] INFUSION 7 [facility] THERAPY/P [facility] ROPHYLAXI S /DX 1ST TO 1 HR THERAPEUT 40752 [facility] IC 7 HEALTH HEALTH INJECTION [facility] IV PUSH EACH NEW DRUG BLOOD 97170 [facility] COUNT 7 HEALTH HEALTH COMPLETE [facility] AUTO&AUTO DIFRNTL WBC INJECTION J1885 [facility] [address] [place] [address] KETOROLAC [facility] TROMETHAM INE [place] [address] [place] [address] [facility] LIPASE 7 [facility] HEALTH [facility] [place] [address] VIRTUAL VIRTUAL ABDOMEN & 7 RADIOLOGI RADIOLOGI PELVIS C C W/O PROFESSIO PROFESSIO CONTRAST MATERIAL PROCALCIT 12615 [facility] ONIN [address] [place] [address] (PCT) [facility] CUL BACT 59224 [facility] AEROBIC [address] [place] [address] HEALTH ADDL [facility] METHS DEFINITIV E EA ISOL CULTURE 18243 [facility] BACTERIAL [address] [place] [address] [place] [address] [facility] INFUSION 7 [facility] HYDRATION [facility] EACH ADDITIONA L HOUR INJECTION J1170 [facility] [address] [place] [address] HYDROMORP [facility] KERWIN UP TO 4 MG COMPREHEN 89566 [facility] SIVE 7 [facility] METABOLIC [facility] [place] [address] [facility] LACTATE [address] [place] [address] INJECTION J2405 [facility] [address] [place] [address] ONDANSETR [facility] ON HCL PER 1 MG IADNA 39662 [facility] ER JR GONORRHOE AE AMPLIFIED PROBE TQ IADNA 51151 [facility], [facility]LAM[facility] JR TRACHOMAT IS AMPLIFIED PROBE TQ CYTP C/V 94500 [facility], [facility] AUTO THIN [facility] JR LYR PREPJ SCR MNL RESCR PHYS OPHTH 87281 SCIFRES SCIFRES MEDICAL 6 ANG ANG XM&EVAL COMPRHNSV ESTAB PT 1/ Encounters Encounter Start End Date Code Location Performer Type Date OFFICE 13062 D[facility]ON ST[facility] OUTPATIEN 7 7 PROFILE STITCHING MACHINE OPERATOR T VISIT ASSOCIATE 15 S, MINUTES OFFICE 28750 URIAHALISSA JADEN OUTPATIEN 7 7 PROFILE STITCHING MACHINE OPERATOR T VISIT ASSOCIATE 15 S, MINUTES [facility] CONGREGATION - 7 7 HEALTH [facility] 74837 CONGREGATION OUTPATIEN 7 7 HEALTH T NEW 30 MEDICAL MINUTES GROUP OFFICE 00977 DILLON STANLEY OUTPATIEN 7 7 PROFILE STITCHING MACHINE OPERATOR T VISIT ASSOCIATE 15 S, MINUTES [facility] CONGREGATION - 7 7 HEALTH [facility] 41507 [facility] DEPT 7 7 EMERGENCY VISIT PHYS PSC HIGH SEVERITY& THREAT FUNCJ EMERGENCY 78650 CONGREGATION 7 7 HEALTH DEPARTMEN [facility] VISIT HIGH/URGE NT SEVERITY OFFICE 32881 D[facility]ON OUTPATIEN 7 7 URGENT T NEW 30 CARE MINUTES PERIODIC 47484 DILLON STANLEY PREVENTIV 7 7 PROFILE STITCHING MACHINE OPERATOR E MED EST ASSOCIATE PATIENT S, 18-39 YRS
--- OUTSIDE RECORDS SUMMARY | 2016-12-22 10:32 | External Medical Summary Rpt ---
Author Author , YISEL MORILLO Address Unknown Phone [email or web address] Team Providers Care Recruiter Manager Name Role Phone PSYCHIATRIC Unavailable Unavailable [facility], [facility] Unavailable Unavailable MEDICAL [facility], [facility] Unavailable Unavailable PHYS [facility], [facility] STEWART, STEWART Unavailable Unavailable [facility] Unavailable Unavailable [facility]INGS, [facility] Unavailable Unavailable HOLDINGS, [facility] MEDICAID SPECIALIST Unavailable Unavailable ASSOCIATES,, [facility], [facility] Unavailable Unavailable [facility], [facility] Unavailable [facility]available [facility] FERNANDO PIERCE, Unavailable Unavailable FERNANDO GAY, ANTONELLA Unavailable Unavailable ANG SCIELLIS GAY, SCIELLIS Unavailable Unavailable [facility] Unavailable Unavailable PROFESSIO, [facility] JADEN STANLEY Unavailable Unavailable Purpose Continuity of Care Document - 03-10-2016 through 2016 Problems Code Diagnosis DOS Provider Status [id number] UNSPECIFIED 11-01-2016 [facility] OVARIAN MEDICAID SPECIALIST CYST LEFT ASSOCIATES, SIDE N926 IRREGULAR 11-01-2016 [facility] MENSTRUATIO MEDICAID SPECIALIST N ASSOCIATES, UNSPECIFIED Z3202 ENCOUNTER 08-30-2016 [facility] FOR MEDICAID SPECIALIST ASSOCIATES, TEST RESULT NEGATIVE D729 DISORDER OF 08-09-2016 [facility] UNSPECIFIED R102 PELVIC AND 08-09-2016 [facility] R5383 OTHER 08-09-2016 [facility] [id number] ENCOUNTER 07-26-2016 [facility] FLOOR LAYER EXAM [facility] GENERAL RTN HOLDINGS W/O ABNORMAL FIND D271 BENIGN 07-22-2016 [facility] NEOPLASM OF HEALTH LEFT OVARY [facility] E278 OTHER 07-22-2016 [facility] SPECIFIED RADIOLOGIC DISORDERS PROFESSIO OF ADRENAL GLAND N1330 UNSPECIFIED 07-22-2016 [facility] HYDRONEPHRO PROFESSIO SIS N209 URINARY 07-22-2016 [facility] UNSPECIFIED N390 URINARY 07-22-2016 [facility] TRACT [facility] INFECTION PHYS [facility] SITE NOT SPECIFIED R109 UNSPECIFIED 07-22-2016 [facility] ABDOMINAL RADI[facility] PAIN PROFESSIO R112 NAUSEA WITH 07-22-2016 [facility]OMITING [facility]ERG[facility] UNSPECIFIED PHYS PSC R300 DYSURIA 07-22-2016 [facility] Z113 ENCOUNTER 06-18-2016 [facility] INFECTIONS SEXL MODE TRANSMISSN H5213 MYOPIA 03-10-2016 [facility] ANG BILATERAL [id number] REGULAR 03-10-2016 [facility] AN[facility] ASTIGMATISM BILATERAL Medications [...] TR 00 03 04 28 21 00 MI Ac I- 55 -1 -2 .0 00 L- ti SP 59 6- 1- 00 07 MA ve RI 01 20 20 31 RT NT 85 17 17 85 EC 8 27 PH AR TA MA BL CY ET #2 62 8 MO 54 03 04 30 30 00 MI Ac NT 45 -1 -1 .0 00 L- ti EL 80 4- 4- 00 07 MA ve UK 89 20 20 32 RT 01 17 17 38 T 0 91 PH SO AR D MA 10 CY MG #2 62 TA 8 BL ET PA 54 03 04 30 30 00 MI Ac RO 45 -1 -1 .0 00 L- ti XE 80 4- 4- 00 07 MA ve TI 99 20 20 32 RT NE 01 17 17 38 0 92 PH HC AR L MA 10 CY MG #2 62 TA 8 BL ET EQ 49 03 04 30 30 00 MI Ac 03 -1 -1 .0 00 L- ti AL 50 4- 4- 00 08 MA ve LE 45 20 20 82 RT RG 89 17 17 85 Y 5 44 PH RE AR LI MA EF CY 10 #2 62 MG 8 TA BL ET STONE 55 02 03 9. 9 00 MI Ac MA 11 -2 -3 00 00 L- ti TR 10 3- 1- 0 07 MA ve IP 29 20 20 32 RT TA 20 17 17 38 N 9 90 PH STONE AR CC MA CY 50 #2 MG 62 8 TA BL ET TR 00 02 03 28 21 00 MI Ac I- 55 -2 -3 .0 00 L- ti SP 59 5- 1- 00 07 MA ve RI 01 20 20 31 RT NT 85 17 17 85 EC 8 27 PH AR TA MA BL CY ET #2 62 8 PA 54 02 03 30 30 00 MI Ac RO 45 -1 -1 .0 00 L- ti XE 80 0- 7- 00 07 MA ve TI 99 20 20 30 RT NE 01 17 17 23 0 89 PH HC AR L MA 10 CY MG #2 62 TA 8 BL ET MO 54 02 03 30 30 00 MI Ac NT 45 -1 -1 .0 00 L- ti EL 80 0- 7- 00 07 MA ve UK 89 20 20 30 RT 01 17 17 23 T 0 90 PH SO AR D MA 10 CY MG #2 62 TA 8 BL ET CE 00 02 03 30 30 00 MI Ac TI 37 -1 -1 .0 00 L- ti RI 83 0- 7- 00 08 MA ve ZI 63 20 20 82 RT NE 70 17 17 85 5 44 PH HC AR L MA 10 CY MG #2 62 TA 8 BL ET STONE 55 02 03 9. 9 00 MI Ac MA 11 -1 -1 00 00 L- ti TR 10 2- 7- 0 07 MA ve IP 29 20 20 30 RT TA 10 17 17 93 N 9 54 PH STONE AR CC MA CY 25 #2 MG 62 8 TA BL ET TR 00 02 03 28 21 00 MI Ac I- 55 -0 -1 .0 00 [...] STONE 55 01 02 9. 30 00 MI Ac MA 11 -1 -1 00 00 L- ti TR 10 4- 7- 0 07 MA ve IP 29 20 20 30 RT TA 10 17 17 93 N 9 54 PH STONE AR CC MA CY 25 #2 MG 62 8 TA BL ET MO 54 01 02 30 30 00 MI Ac NT 45 -1 -1 .0 00 L- ti EL 80 4- 7- 00 07 MA ve UK 89 20 20 30 RT 01 17 17 23 T 0 90 PH SO AR D MA 10 CY MG #2 62 TA 8 BL ET PA 54 01 02 30 30 00 MI Ac RO 45 -1 -1 .0 00 L- ti XE 80 4- 7- 00 07 MA ve TI 99 20 20 30 RT NE 01 17 17 23 0 89 PH HC AR L MA 10 CY MG #2 62 TA 8 BL ET EQ 49 01 02 30 30 00 MI Ac 03 -1 -1 .0 00 L- ti AL 50 4- 7- 00 08 MA ve LE 45 20 20 82 RT RG 89 17 17 85 Y 5 44 PH RE AR LI MA EF CY 10 #2 62 MG 8 TA BL ET TR 00 01 02 28 21 00 MI Ac I- 55 -1 -1 .0 00 L- ti SP 59 4- 7- 00 07 MA ve RI 01 20 20 31 RT NT 85 17 17 85 EC 8 27 PH AR TA MA BL CY ET #2 62 8 GA 00 12 01 0[address] 00 -1 -2 50 00 L- ti 64 6- 0- 0 07 MA ve IL 12 20 20 31 RT 9 10 16 17 48 2 43 PH SY AR RI MA NG CY E #2 62 8 PA 54 12 01 30 30 00 MI Ac RO 45 -1 -2 .0 00 L- ti XE 80 6- 0- 00 07 MA ve TI 99 20 20 30 RT NE 01 16 17 23 0 89 PH HC AR L MA 10 CY MG #2 62 TA 8 BL ET CE 00 12 01 30 30 00 MI Ac TI 37 -1 -2 .0 00 L- ti RI 83 6- 0- 00 08 MA ve ZI 63 20 20 82 RT NE 70 16 17 85 5 44 PH HC AR L MA 10 CY MG #2 62 TA 8 BL ET STONE 55 12 01 9. 30 00 MI Ac MA 11 -1 -2 00 00 L- ti TR 10 6- 0- 0 07 MA ve IP 29 20 20 30 RT TA 10 16 17 93 N 9 54 PH STONE AR CC MA CY 25 #2 MG 62 8 TA BL ET MO 54 12 01 30 30 00 MI Ac NT 45 -1 -2 .0 00 [...] Procedure [place] [address] [facility] TRANSVAGI 7 MEDICAID SPECIALIST NAL ASSOCIATE S, URINE 82755 [facility] 7 MEDICAID SPECIALIST TEST ASSOCIATE VISUAL S, COLOR CMPRSN METHS GONADOTRO 48952 [facility] PIN 7 [facility] CHORIONIC [facility] QUANTITAT JOEY BLOOD 42284 [facility] COUNT 7 [facility] COMPLETE [facility] AUTO&AUTO DIFRNTL WBC BASIC 89863 [facility] METABOLIC 7 HEALTH HEALTH PANEL [facility] CALCIUM TOTAL COLLECTIO 27638 [facility] N VENOUS 7 [facility] BLOOD [facility] [place] [address] [facility] THYROID 7 [facility] STIMULATI [facility] [place] [address] [facility] TRANSLONE [facility] 7 MEDICAID SPECIALIST NAL ASSOCIATE S, BLOOD 92080 LAB L[facility] COUNT 7 [facility] COMPLETE HOLDINGS HOLDINGS AUTO&AUTO DIFRNTL WBC CULTURE 33493 [facility] BACTERIAL 7 [facility] BLOOD [facility] AEROBIC W/ID ISOLATES SUSCEPTIB 26097 [facility] LTY STDY 7 [facility] ANTIMICRB [facility] IAL MICRO/AGA R DILUTJ URNLS DIP 26144 [facility] 7 [facility] STICK/TAB [facility] [place] [address] [facility] INFUSION 7 [facility] THERAPY/P [facility] ROPHYLAXI S /DX 1ST TO 1 HR THERAPEUT 43516 [facility] IC 7 [facility]ALTH HEALTH INJECTION [facility] IV PUSH EACH NEW DRUG BLOOD 84619 [facility] COUNT 7 HEALTH HEALTH COMPLETE [facility] AUTO&AUTO DIFRNTL WBC INJECTION J1885 [facility] [address] [place] [address] KETOROLAC [facility] TROMETHAM INE PER [address] [place] [address] [facility] LIPASE 7 [facility] [place] [address] [facility] & 7 RADIOLOGI RADIOLOGI PELVIS C C W/O PROFESSIO PROFESSIO CONTRAST MATERIAL PROCALCIT 49083 [facility] ONIN [address] [place] [address] (PCT) [facility] CUL BACT 88616 [facility] AEROBIC [address] [place] [address] HEALTH ADDL [facility] METHS DEFINITIV E EA ISOL CULTURE 54856 [facility] BACTERIAL [address] [place] [address] [place] [address] [facility] INFUSION 7 [facility] HYDRATION [facility] EACH ADDITIONA L HOUR INJECTION J1170 [facility] [address] [place] [address] HYDROMORP [facility] KERWIN UP TO 4 MG COMPREHEN 51071 [facility] SIVE 7 [facility] METABOLIC [facility] [place] [address] [facility] LACTATE [address] [place] [address] INJECTION J2405 [facility] [address] [place] [address] ONDANSETR [facility] ON HCL PER 1 MG IADNA 92315 [facility] NEISSERIA 7 LLC ER JR GONORRHOE AE AMPLIFIED PROBE TQ IADNA 44966 [facility] CHLAMYDIA 7 LLC ER JR TRACHOMAT IS AMPLIFIED PROBE TQ CYTP C/V 55444 [facility] AUTO THIN 7 LLC ER JR LYR PREPJ SCR MNL RESCR PHYS OPHTH 49020 [facility] SC[facility] MEDICAL 6 ANG ANG XM&EVAL COMPRHNSV ESTAB PT 1/ Encounters Encounter Start End Date Code Location Performer Type Date OFFICE 67684 [facility] ST[facility] OUTPATIEN 7 7 MEDICAID SPECIALIST T VISIT ASSOCIATE 15 S, MINUTES OFFICE 74148 URIAHALISSA JADEN OUTPATIEN 7 7 MEDICAID SPECIALIST T VISIT ASSOCIATE 15 S, MINUTES [facility] - 7 [facility] 64446 [facility] OUT[facility] 7 7 HEALTH T NEW 30 MEDICAL MINUTES GROUP OFFICE 58510 DILLON STANLEY OUTPATIEN 7 7 MEDICAID SPECIALIST T VISIT ASSOCIATE 15 S, MINUTES [facility] - 7 7 [facility] 25359 [facility] DEPT 7 7 EMERGENCY VISIT PHYS PSC HIGH SEVERITY& THREAT [facility]J EMERGENCY 63901 [facility] 7 7 HEALTH DEPARTMEN [facility] VISIT HIGH/URGE NT SEVERITY OFFICE 83989 [facility] OUT[facility]IEN 7 7 URGENT T NEW 30 CARE MINUTES PERIODIC 14349 DILLON STANLEY PREVENTIV 7 7 MEDICAID SPECIALIST E MED EST ASSOCIATE PATIENT S, 18-39 YRS
--- OUTSIDE RECORDS SUMMARY | 2016-12-22 10:33 | External Medical Summary Rpt ---
Author Author YISEL Ma, YISEL Ma Organization [employer] Address Unknown Phone Unavailable
--- OUTSIDE RECORDS SUMMARY | 2016-12-22 10:33 | External Medical Summary Rpt ---
Author Author , YISEL MORILLO Address Unknown Phone [email or web address] Immunization Name Date Rout CVX Reac Dose Comm Prov Is Faci e tion ent ider Refu lity Give sed n HPV9 12-1 Intr 0.5 Hist [facility] No WALM 6-20 amus mL oric ART2 ART2 16 cula al 628 628 r Info rmat ion - Sour ce Unsp ecif ied Infl 12-0 Intr 150 0.5 Hist [facility] No WALM uenz 1-20 amus mL oric ART2 ART2 a 16 cula al 628 628 Quad r Info Inj rmat ion - Sour ce Unsp ecif ied
--- OUTSIDE RECORDS SUMMARY | 2016-12-22 10:33 | External Medical Summary Rpt ---
Author Author , YISEL MORILLO Address Unknown Phone [email or web address] Immunization Name Date Rout CVX Reac Dose [...]
[2016-12-22] MEDS ORDERED: Tri-Sprintec 281 TAB PO (10:37)
[2016-12-22] MEDS ORDERED: PAROXETINE20 MG PO (10:37)
[2016-12-22] MEDS ORDERED: SINGULAIR 10 MG10 MG PO (10:38)
[2016-12-22] MEDS ORDERED: ALBUTEROL-200 PUFFS/ IH (10:38)
[2016-12-22] MEDS ORDERED: ZYRTEC ALLERGY10 MG PO (10:38)
--- NOTE | 2016-12-22 10:56 | Urgent Treatment Center Report ---
History of Present Issue Date/Time Seen by Provider 12/22/16 1040 Visit Reason Pt arrived:Walked Presenting Problem:PT STATES STIFF NECK AND BACK, JOINT PAIN, MALAISE AND HEADACHE SINCE SATURDAY MORNING Location if Accident: Onset of symptoms date/time:12/18/16/ or onset unknown for:MEDICAL HX UNKNOWN Have you (or family members/close friends) recently traveled outside the [place]? N If Yes, where/when: Have you had exposure to infectious disease within the past month? TB? Other? Specify: Patient state that she has been having a headache,pain and stiffness in her neck and shoulders and not feeling well since Saturday. States that she has been achy all over and sleeping alot. States that her headache is in the back of her head and radiates up. State that ususally she sleeps around 6 hours a night and for the last week or so she has been sleeping 12 plus so not sure if she may have slept wrong ALLERGIES Coded Allergies: Cephalosporins (12/22/16) Penicillins (12/22/16) SHELLFISH (FOOD) (From SHELLFISH (FOOD/DRUG)) (ANAPHYLAXIS 12/22/16) SOYBEAN (FOOD) (From SOYBEAN (FOOD/DRUG)) (12/22/16) TUNA (DRUG) (From TUNA (FOOD/DRUG)) (12/22/16) Tuna (From TUNA (FOOD/DRUG)) (12/22/16) amoxicillin (12/22/16) cefadroxil (From DURICEF) (12/22/16) clindamycin (12/22/16) erythromycin base (12/22/16) minocycline (12/22/16) shellfish derived (From SHELLFISH (FOOD/DRUG)) (ANAPHYLAXIS 12/22/16) soybean (From SOYBEAN (FOOD/DRUG)) (12/22/16) sulfamethoxazole (From BACTRIM) (12/22/16) trimethoprim (From BACTRIM) (12/22/16) Home Medications Reported Medications PAROXETINE (Paroxetine HCl) 10 MG PO NIGHTLY NORGESTIMATE-ETHINYL ESTRADIOL (Tri-Sprintec Tablet) 1 TAB PO NIGHTLY Montelukast Sodium (Singulair 10MG) 10 MG PO NIGHTLY Cetirizine Hcl (Zyrtec) 10 MG PO NIGHTLY Albuterol (Albuterol-Hfa Inhaler) 1 PUFF IH PRN PRN ASTHMA History Medical History General CAD? No Angina: No NH: No Hypertension? No Hyperlipidemia? No CHF? No DVT? No PE? No COPD? No Asthma? Yes Anemia? No GERD? No Gastric ulcers? No GI Bleed? No Hernia? No Thyroid Problems? No Hypothyroidism? No CVA? No Seizures? No Diabetes? No Renal Insuffiency? No UTI? No Stones? No BPH? No GB Disease: No Nephritic Syndrome? No Asplenia? No Hepatitis? No Sickle Cell Disease? No Arthritis? No Migraines? No Cataracts? No Glaucoma? No MRSA? No HIV? No TB? No Anxiety? No Depression? No Cancer? 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 Muscle tightness palpated. Able to move and do range of motion but states that it pulls and hurts Respiratory Status Yes: trachea midline, chest symmetrical, non tender chest. No: respiratory distress. Lung Sounds bilateral: normal breath sounds, lungs clear. 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 Denies fever, denies sorethroat, denies recent illness or chance of . Medical Decision Making LABS/Meds/Orders Pt receiving controlled substance in ED? No Results/Orders Laboratory Tests 12/22/16 1055: WBC 7.6, RBC 4.48, Hgb 12.7, Hct 38.8, MCV 86.5, RDW 12.8, Plt Count 244, MPV 7.0 L, Gran % 76.3, Gran # 5.8, Lymphocytes % 17.8, Monocytes % 3.2, Eosinophils % 2.3, Basophils % 0.5, Lymphocytes # 1.4, Monocytes # 0.2, Eosinophils # 0.2, Basophils # 0.0, PUBS MCHC 32.8, MCH 28.4 Current Medication Orders Sig/Shima Start time Last Medication Dose Route Stop Time Status Admin Ketorolac 0 .STK-MED ONE 12/22 110 DC Tromethamine .ROUTE Orphenadrine Citrate 0 .STK-MED ONE 12/22 1101 DC .ROUTE Ketorolac 60 MG ONCE ONE 12/22 1100 DC 12/22 Tromethamine IM 12/22 1101 1105 Orphenadrine Citrate 60 MG ONCE ONE 12/22 1100 DC / IM 12/22 1101 1105 Orders Procedure Date/time Status CBC WITH AUTO DIFF 12/22 1050 Complete Departure Departure Time of Disposition 1124 Disposition DC Home or Self Care(routine) Clinical Impression Primary Impression: Muscle pain, cervical Condition STABLE Patient Instructions DI for Joint Pain, DI for Muscle Spasm, DI for Neck Pain, Tension Headache Additional Instructions Rest muscles When you feel headache coming on take medication to help prevent headache Use well support pillow for sleeping If you develop fever or chills follow up with family doctor Take medication as prescribed Return if needed Discharge Counseling Counseled pt/family regarding diagnosis, medications/RX, home care, follow up needs Prescriptions Current Visit Scripts Cyclobenzaprine Hcl (Flexeril) 10 MG PO TID #18 TAB Etodolac 200 MG PO Q6HP PRN pain #20 CAP at 1438
[2016-12-22 11:06] LABS: HEMOGLOBIN 12.7 g/dL (12.2-16.2); LYMPH # 1.4 K/mm3 (0.7-4.5); LYMPH % 17.8 % (10-50.0)
[2016-12-22] MEDS ORDERED: FLEXERIL10 MG PO (11:26)
[2016-12-22] MEDS ORDERED: ETODOLAC200 MG PO (11:27)
[2016-12-22 11:31] VITALS: BP 135/85
== END 2016-12-22 11:32 | disposition home or self-care (01) ==
LOC: UTC 10:20
PROVIDERS: Nurse Practitioner
DX: M54.2 Cervicalgia (principal)